=== PATIENT | female | born 1985 | race Caucasian/White ===

== ENCOUNTER 2019-06-15 01:45 | Emergency (ER) | payer BC ==
[2019-06-15 02:16] LABS: ABSOLUTE EOSINOPHILS # (AUTO) 0.2 10^3/uL (0.0-0.6); ABSOLUTE LYMPHOCYTES (AUTO) 2.6 10^3/uL (0.5-4.7); ABSOLUTE MONOCYTES (AUTO) 0.5 10^3/uL (0.1-1.4); ABSOLUTE NEUT (AUTO) 3.7 10^3/uL (1.7-8.2); BASOPHILS % (AUTO) 0.7 % (0-2); EOSINOPHILS % (AUTO) 2.6 % (0-6); HEMATOCRIT 37.8 % (36.0-47.0); HEMOGLOBIN 12.9 g/dL (12.0-15.5); LYMPHOCYTES % (AUTO) 37.3 % (13-45); MEAN CORPUSCULAR HEMOGLOBIN 31.3 pg (27.0-33.4); MEAN CORPUSCULAR HGB CONC 34.3 g/dL (32.0-36.0); MEAN CORPUSCULAR VOLUME 91 fl (80-97); MONOCYTES % (AUTO) 7.3 % (3-13); PLATELET COUNT 249 10^3/uL (150-450); RED BLOOD COUNT 4.13 10^6/uL (3.72-5.28); RED CELL DISTRIBUTION WIDTH 13.4 % (11.5-14.0); SEGMENTED NEUTROPHILS % (AUTO) 52.1 % (42-78); TOTAL CELLS COUNTED % (AUTO) 100 %; WHITE BLOOD COUNT 7.1 10^3/uL (4.0-10.5)
[2019-06-15 02:30] LABS: APPEARANCE,URINE SLIGHTLY-CLOUDY; BILIRUBIN,URINE NEGATIVE (NEGATIVE); COLOR,URINE RED; GLUCOSE, URINE NEGATIVE (NEGATIVE); KETONES,URINE NEGATIVE (NEGATIVE); LEUKOCYTE ESTERASE,URINE NEGATIVE (NEGATIVE); NITRITE,URINE NEGATIVE (NEGATIVE); PROTEIN,URINE 100 mg/dL (NEGATIVE); URINE SPECIFIC GRAVITY 1.009; UROBILINOGEN,URINE NEGATIVE mg/dL (<2.0)
--- NOTE | 2019-06-15 03:51 | RADIOLOGY REPORT (SQ) ---
EXAM: US Pelvis Transvaginal CLINICAL DATA: 33-year-old female status post recent miscarriage with bleeding and clots, worsening today TECHNICAL DATA: Ultrasound imaging of the pelvis was performed endovaginally on 06/15/2019 at 2:45 AM. COMPARISONS: None FINDINGS: The uterus is normal in size, shape and echogenicity and measures 9.6 x 4.7 x 4.8 cm. The endometrial complex measures 0.75 cm in thickness. There are small cystic areas within the endometrial canal. Doppler imaging reveals mild internal color Doppler vascularity as well as color Doppler vascularity within the adjacent myometrium. The right ovary measures 4.0 x 2.2 x 2.0 cm. The right ovary contains normal follicles. There is a dominant follicle arising from the right ovary measuring 1.3 x 1.1 x 1.2 cm. Doppler imaging demonstrates normal pulsed and color Doppler flow. The left ovary measures 3.2 x 1.8 x 2.0 cm. The left ovary contains normal follicles. Doppler imaging demonstrates normal pulsed and color Doppler flow. There is no free fluid in the pelvis. The cervix measures 3.3 cm in length. IMPRESSION: 1. Heterogeneous appearance of the endometrial echo complex which is normal in thickness. There is minimal internal color Doppler vascularity as well as color Doppler flow within the adjacent myometrium. Retained products of conception are not entirely excluded. 2. Grossly normal sonographic evaluation of the ovaries.
--- NOTE | 2019-06-15 04:36 | ER Document Report ---
ED GI/ - General Chief Complaint: Vaginal Bleeding Stated Complaint: VAGINAL BLEEDING Time Seen by Provider: 06/15/19 04:35 Mode of Arrival: Ambulatory Information source: Patient Notes: Patient is an otherwise healthy 33-year-old female G3, P2 presenting to the emergency department with vaginal bleeding. Patient reports she was diagnosed with a miscarriage approximately 2 weeks ago. Patient reports she passed some small clots at that time but her bleeding had pretty much subsided. Patient reports this evening bleeding started heavily and she started passing clots larger than quarter size. She reports low abdominal cramping. Denies any nausea, vomiting, diarrhea or syncope. Patient did not have any medical intervention with her miscarriage. She is not from this area and is from [place]. She denies any other chronic medical conditions. TRAVEL OUTSIDE OF THE [place] IN LAST 30 DAYS: No - Related Data Allergies/Adverse Reactions: No Known Allergies Allergy (Unverified 06/15/19 01:48) Past Medical History - General Information source: Patient - Social History Smoking Status: Never Smoker Family History: Reviewed & Not Pertinent Patient has suicidal ideation: No Patient has homicidal ideation: No - Medical History Medical History: Negative Surgical Hx: Negative Review of Systems - Review of Systems Constitutional: No symptoms reported EENT: No symptoms reported Cardiovascular: No symptoms reported Respiratory: No symptoms reported Gastrointestinal: No symptoms reported Genitourinary: No symptoms reported Female Genitourinary: Vaginal bleeding Musculoskeletal: No symptoms reported Skin: No symptoms reported Hematologic/Lymphatic: No symptoms reported Neurological/Psychological: No symptoms reported Physical Exam - Vital signs Vitals: Temp Pulse Resp BP Pulse Ox 97.9 F 65 18 127/80 H 99 06/15/19 01:49 06/15/19 01:49 06/15/19 01:49 06/15/19 01:49 06/15/19 01:49 - Notes Notes: PHYSICAL EXAMINATION: GENERAL: Well-appearing, well-nourished and in no acute distress. HEAD: Atraumatic, normocephalic. EYES: Pupils equal round and reactive to light, extraocular movements intact, conjunctiva are normal. ENT: Nares patent, oropharynx clear without exudates. Moist mucous membranes. NECK: Normal range of motion, supple without lymphadenopathy LUNGS: Breath sounds clear to auscultation bilaterally and equal. No wheezes rales or rhonchi. HEART: Regular rate and rhythm without murmurs ABDOMEN: Soft, nontender, nondistended abdomen. No guarding, no rebound. No masses appreciated. Female : Normal external genitalia, small amount of dark red blood coming from the cervix. No cervical motion or adnexal tenderness. Musculoskeletal: Normal range of motion, no pitting or edema. No cyanosis. NEUROLOGICAL: Cranial nerves grossly intact. Normal speech, normal gait. Normal sensory, motor exams PSYCH: Normal mood, normal affect. SKIN: Warm, Dry, normal turgor, no rashes or lesions noted. Course - Re-evaluation Re-evalutation: Laboratory 06/15/19 06/15/19 06/15/19 02:00 02:00 02:00 WBC 7.1 RBC 4.13 Hgb 12.9 Hct 37.8 MCV 91 MCH 31.3 MCHC 34.3 RDW 13.4 Plt Count 249 Lymph % (Auto) 37.3 [place] % (Auto) 7.3 Eos % (Auto) 2.6 Baso % (Auto) 0.7 Absolute Neuts (auto) 3.7 Absolute Lymphs (auto) 2.6 Absolute Monos (auto) 0.5 Absolute Eos (auto) 0.2 Absolute Basos (auto) 0.0 Seg Neutrophils % 52.1 Beta HCG, Quant 3930.80 H Total Beta HCG POSITIVE Urine Color RED Urine Appearance SLIGHTLY-CLOUDY Urine pH 6.0 Ur Specific [place] 1.009 Urine Protein 100 H Urine Glucose (UA) NEGATIVE Urine Ketones NEGATIVE Urine Blood LARGE H Urine Nitrite NEGATIVE Urine Bilirubin NEGATIVE Urine Urobilinogen NEGATIVE Ur Leukocyte Esterase NEGATIVE Urine RBC (Auto) >182 Urine Ascorbic Acid NEGATIVE Transvaginal US 06/15/19 02:27 IMPRESSION: 1. Heterogeneous appearance of the endometrial echo complex which is normal in thickness. There is minimal internal color Doppler vascularity as well as color Doppler flow within the adjacent myometrium. Retained products of conception are not entirely excluded. 2. Grossly normal sonographic evaluation of the ovaries. 06/15/19 05:35 Consulted OB on-call, Dr. Segundo. Patient will be discharged home in stable condition. She will follow-up with her [facility] in her hometown early next week. ED return precautions were discussed, patient verbalized understanding and agreement with same. The patient's emergency department workup and current diagnosis were explained to the patient and or family. Follow-up instructions were provided. Medications if prescribed were discussed. Instructions for when to return to the emergency department including specific worrisome symptoms were discussed with the patient and/or family. - Vital Signs Vital signs: Temp Pulse Resp BP Pulse Ox 98.0 F 57 L 18 101/42 L 97 06/15/19 06:07 06/15/19 06:07 06/15/19 01:49 06/15/19 06:07 06/15/19 06:07 - Laboratory Result Diagrams: 06/15/19 02:00 Laboratory results interpreted by me: 06/15/19 06/15/19 02:00 02:00 Beta HCG, Quant 3930.80 H Urine Protein 100 H Urine Blood LARGE H Discharge - Discharge Clinical Impression: Vaginal bleeding, Miscarriage Condition: Stable Disposition: HOME, SELF-CARE Additional Instructions: Miscarriage You have had a miscarriage (medically called a "spontaneous "). The miscarriage occurred because the fetus did not develop normally. There is nothing you did to cause it, and nothing you could have done to prevent it. About one in four ends in miscarriage. You should rest in bed for two or three days. As there is some risk of infection of the uterus, you should not have intercourse for one week (or until okayed by your physician). You might not have a period for six to eight weeks. You should not become again for at least three months -- the uterus requires time to get back to normal. Call the doctor or return for re-examination if there is heavy or persistent vaginal bleeding, fever, foul discharge, continued cramping pains, or abdominal pain. Please be sure to follow-up with your [employer] this coming week for a follow-up. Call them Tuesday to schedule an appointment. Please make sure you bring your lab results and ultrasound report with you. Return to the emergency department if you develop worsening symptoms such as bleeding through more than 2 pads per hour, you pass out or any other concerning symptoms we are happy to reevaluate you at any time.
[2019-06-15 06:10] VITALS: BP 101/42
== END 2019-06-15 06:12 | disposition home or self-care (01) ==
LOC: ER 01:45
DX: O03.6 Delayed or excessive hemorrhage following complete or unspecified spontaneous abortion (principal)
CPT/HCPCS: 36415; 76830; 81001; 84702; 85025; 93976; 99284